=== PATIENT | female | born 1940 | race Caucasian/White ===

== ENCOUNTER 2022-12-27 12:49 | Emergency (ER) | payer MEDICARE, OTHER, SELFPAY ==
[2022-12-27] VITALS (14 sets, daily range): BP systolic 99–205; BP diastolic 71–100; PULSE 77–133; RESP 18; TEMP 36.7; O2SAT 95–100
--- NOTE | 2022-12-27 12:51 | DI.CT.S_ITS ---
PROCEDURE: CT ANGIO HEAD AND NECK INDICATIONS: left sided weakness TECHNIQUE: After the administration of intravenous contrast, 1 mm thick sections acquired from the aortic arch through the [place]. 3-dimensional wnjknos-mioqrxsot-dyzctsgbaz (MIP) and/or volume rendering reformats were acquired of the central intracranial vasculature and neck separately. For radiation dose reduction, the following was used: automated exposure control, adjustment of mA and/or kV according to patient size. COMPARISON: None. FINDINGS: Image quality: Diagnostic. BRAIN: CSF spaces: Ventricles are normal in size and shape. Basal cisterns are patent. No extra-axial fluid collections. Brain: No significant abnormality of the brain can be seen. Skull and face: Calvarium and facial bones appear intact, without suspicious lesions. Orbits appear normal. Sinuses: Sinuses and mastoids are clear. HEAD CT ANGIOGRAPHY: Anterior circulation: Intracranial internal carotid arteries demonstrate atherosclerotic irregularity and calcification, with approximately 50% narrowing on each side. The flow within the paired anterior cerebral arteries is normal and symmetric. The anterior communicating artery is seen. There is asymmetrically reduced flow within right M1 segment compared to the left M1 segment. There is highly attenuated flow seen within the right middle cerebral artery territory compared to the left. No aneurysms are seen. Posterior circulation: There is complete occlusion of the left V4 segment. The right V4 segment is within normal limits. There is a normal appearing basilar artery. Flow within the posterior cerebral arteries is normal and symmetric. No aneurysms are seen. NECK CT ANGIOGRAPHY: Carotid system: The great vessels demonstrate a conventional anatomy as they arise from the aortic arch. Atherosclerotic calcification is noted. The origins of the common carotid arteries appear patent. The common carotid arteries demonstrate normal caliber and courses. The bifurcation regions demonstrate atherosclerotic irregularity and calcification. There is approximately 80% narrowing seen on the right and 70-80% narrowing seen on the left. The more distal internal carotid arteries demonstrate normal course and caliber. Posterior circulation: The origin of the left vertebral artery is nearly completely occluded. The left vertebral artery demonstrates irregularity throughout its course. There is complete occlusion of the distal left vertebral artery within the distal V3 segment. The right vertebral artery origin demonstrates approximately 50% narrowing. The distal right vertebral artery is within normal limits. Soft tissues: Visualized neck soft tissues demonstrate no suspicious abnormalities. Several bubbles of gas can be seen within the deep soft tissues of the right face. Emphysematous changes can be seen at the lung apices. Bones: No suspicious bony lesions. Visualized cervical spine appears normally aligned. Advanced degenerative change can be seen involving the C1-C2 interface anteriorly, with irregularity with erosion of the dens and prominent calcified pannus posterior to the dens. Prominent degenerative changes can be seen within the lower cervical spine. IMPRESSION: Reduced flow within the right M1 segment compared to the left, with highly reduced segment throughout the right MCA territory compared to the left. 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 There is a small amount of flow seen throughout the extracranial left vertebral artery, yet with no flow seen within the left V4 segment. There is approximately 80% narrowing seen involving the right internal carotid artery origin, with 70-80% narrowing seen involving the left internal carotid artery origin. A few bubbles of gas can be seen within the deep soft tissues of the right face. Please correlate with known patient history. Additional findings: Prominent cervical spine degenerative change Note: Case discussed by telephone with Yaz Newell at 12:21 p.m. [place] time on December 27, 2022. Any quantitative measurements of stenosis were performed using NASCET criteria. Dictated by: Stepan Alonzo M.D. on 12/27/2022 at 12:13 Approved by: Stepan Alonzo M.D. on 12/27/2022 at 12:24
--- NOTE | 2022-12-27 12:51 | DI.CT.S_ITS ---
PROCEDURE: CT HEAD/BRAIN WO CON INDICATIONS: left sided weakness TECHNIQUE: Noncontrast 4.5 mm thick angled axial sections acquired from the foramen magnum to the vertex, with coronal and sagittal reformats. For radiation dose reduction, the following was used: automated exposure control, adjustment of mA and/or kV according to patient size. COMPARISON: None. FINDINGS: Image quality: Excellent. CSF spaces: Basal cisterns are patent. No extra-axial fluid collections. Ventricles are normal in size and shape. Brain: No midline shift. No intracranial masses or hemorrhage. Wilson-white matter interface is normal. Subcortical and periventricular white matter hypodensities are consistent with small vessel ischemic disease. Skull and face: Calvarium and visualized facial bones are intact, without suspicious lesions. Air is seen in the soft tissues of the right temporal lobe and [employer] muscles likely from inadvertent air injected into the IV line which is benign. Sinuses: Visualized sinuses and mastoids are clear. IMPRESSION: 1. No acute intracranial abnormality. 2. Cerebral volume loss and small vessel ischemic changes. Dictated by: Aristides Johnson M.D. on 12/27/2022 at 13:03 Approved by: Aristides Johnson M.D. on 12/27/2022 at 13:06
--- NOTE | 2022-12-27 13:04 | ED.NEUROSD ---
HPI - Neuro Symptoms/Deficit General Chief Complaint: Neuro Symptoms/Deficit Stated Complaint: Code Stroke Time Seen by Provider: 12/27/22 12:54 History of Present Illness HPI Narrative: 82-year-old female with history of atrial fibrillation on Eliquis presents by EMS as a code stroke. Patient was at the [facility] when at 12:30 p.m. patient's noticed a facial droop and speech slurring. EMS was called and patient transported for further evaluation. Vital signs were significant for hypertension and route, Accu-Chek 102. Patient noted to have significant left-sided facial droop with drooling, absent accounting system expert on the left-hand side, extinction on the left Related Data Allergies Allergy/AdvReac Type Severity Reaction Status Date / Time No Allergy Information Allergy Verified 12/27/22 14:01 Available Review of Systems Review of Systems Narrative: Unable to assess due to medical condition Exam Initial Vital Signs Initial Vital Signs: Vital Signs Temperature 98.1 F 12/27/22 12:55 Pulse Rate 81 12/27/22 12:55 Respiratory Rate 18 12/27/22 12:55 Blood Pressure 203/95 H 12/27/22 12:55 Pulse Oximetry 99 12/27/22 12:55 Oxygen Delivery Method Room Air 12/27/22 12:55 Const: Awake, alert, no acute distress Eyes: PERRL, EOMI, conjunctiva normal ENT: Atraumatic, facial droop Cardiac: Irregularly irregular RESP: unlabored, clear bilaterally, no wheezing GI: Atraumatic, soft, nontender Skin: Warm, Dry, intact, no rashes Neuro: AO x2, marked facial droop left-hand side, extinction left-hand side, decreased accounting system expert strength left hand, decreased strength left leg Psych: Appropriate for given condition Course Course Course Narrative: Facial droop and left-sided weakness, concerning for acute CVA. Stroke alert protocol continued on arrival. Stat noncontrast CT scan negative for bleed or acute findings. Goal blood pressure less than 220 systolic Orders Ordered: ED Orders 12/27/22 12:51 CT angio head and neck Stat CT head/brain wo con Stat 12/27/22 13:05 Complete Blood Count AUTO DIFF Stat Comprehensive Metabolic Panel Stat Ethanol (ETOH) Stat PTT Partial Thromboplastin George Stat Prothrombin Time INR Stat Troponin & CK Cardiac Panel Stat EKG-12 Lead Stat 12/27/22 13:38 COVID19 -Nasal RAPID Stat Discontinued Medications Labetalol HCl (Labetalol 20 Mg/4 Ml Syringe) 10 mg IV NOW ONE Stop: 12/27/22 13:31 Last Admin: 12/27/22 13:38 Dose: 10 mg Documented By: SHANT Reevaluation(s) Reevaluation #1: 1320 -case discussed with radiologist. CTA shows numerous concerning findings including significantly reduced flow in the MCA territory on the right. Is also noted that the left vertebral artery is nearly completely occluded at its origin with no flow in the V4 segment. Images pushed to [facility] for evaluation and specialtiy review. Discussed report with patient and her at bedside, they would like to pursue aggressive measures if that is available to them. Reevaluation #2: [facility] reviewed images, accepted patient for transfer as she is currently a thrombectomy candidate. Blood pressure briefly climbed to 223 systolic, given 10 mg IV labetalol with improvement in blood pressure. Reevaluation #3: Patient transferred to care of [facility] medical service in stable condition at 1425. Patient stable within capacity at time of transfer. Vital Signs Vital signs: Vital Signs - 8 hr 12/27/22 12:55 12/27/22 13:00 12/27/22 13:05 Temperature 98.1 F Pulse Rate 81 77 Respiratory Rate 18 Blood Pressure 203/95 H 196/90 H 188/88 H Pulse Oximetry 99 96 Oxygen Delivery Method Room Air Room Air 12/27/22 13:10 12/27/22 13:15 12/27/22 13:20 Temperature Pulse Rate 80 82 83 Respiratory Rate Blood Pressure 180/86 H 203/95 H 204/100 H Pulse Oximetry 96 96 95 Oxygen Delivery Method Room Air Room Air Room Air 12/27/22 13:30 12/27/22 13:38 12/27/22 14:05 Temperature Pulse Rate 124 H 84 129 H Respiratory Rate Blood Pressure 128/80 205/98 H 133/89 Pulse Oximetry 95 97 Oxygen Delivery Method Room Air Room Air 12/27/22 14:10 12/27/22 14:15 12/27/22 14:30 Temperature Pulse Rate 133 H 131 H 124 H Respiratory Rate Blood Pressure 116/93 H 102/72 123/73 Pulse Oximetry 99 100 98 Oxygen Delivery Method Room Air Room Air Room Air 12/27/22 14:35 12/27/22 14:40 Temperature Pulse Rate 133 H Respiratory Rate Blood Pressure 104/71 99/72 Pulse Oximetry 99 99 Oxygen Delivery Method Room Air Room Air MDM - Neuro Symptoms/Deficit Differential Diagnosis Differential diagnosis: Likely delirium, subarachnoid hemorrhage and cerebrovascular accident Lab Data 12/27/22 13:05 12/27/22 13:05 Labs: Lab Results 12/27/22 12/27/22 Range/Units 13:05 13:38 WBC 6.1 (4.5-11.0) X10^3/uL RBC 3.93 L (4.0-5.2) X10^6/uL Hgb 11.9 L (12.0-16.0) g/dL Hct 35.2 L (36-46) % MCV 89.4 (80-100) fL MCH 30.2 (26-34) PG MCHC 33.8 (30-36) % RDW 12.9 (11.6-14.8) % Plt Count 194 (150-400) X10^3/uL Neut % (Auto) 74.7 (50-75) % Lymph % (Auto) 12.2 L (25-40) % Mayes % (Auto) 8.7 (3-14) % Eos % (Auto) 3.7 (2-4) % Baso % (Auto) 0.7 (0-2) % Neut # (Auto) 4500 (3610-4540) /uL Lymph # (Auto) 700 L (3298-9129) /uL Mayes # (Auto) 500 (0-900) /uL Eos # (Auto) 200 (0-450) /uL Baso # (Auto) 0 (0-100) /uL PT 13.1 H (10.1-12.7) SECONDS INR 1.1 (0.9-1.3) APTT 35 (26-36) SECONDS Sodium 126 L (137-145) mmol/L Potassium 5.1 (3.4-5.1) mmol/L Chloride 93 L (98-107) mmol/L Carbon Dioxide 28 (22-32) mmol/L BUN 14 (7-17) mg/dL Creatinine 0.62 (0.52-1.04) mg/dL Estimated GFR > 60 (>60) mL/min BUN/Creatinine Ratio 22.6 H (6-22) Glucose 99 (80-110) mg/dL Calcium 9.3 (8.4-10.2) mg/dL Total Bilirubin 0.5 (0.2-1.3) mg/dL AST 27 (14-36) IU/L ALT 20 (<35) IU/L Alkaline Phosphatase 63 (38-126) U/L Total Creatine Kinase 32 (30-135) U/L Troponin I < 0.012 (0.01-0.034) ng/mL Total Protein 6.4 (6.3-8.2) g/dL Albumin 3.7 (3.5-5.0) g/dL Globulin 2.7 (1.7-4.1) g/dL Albumin/Globulin Ratio 1.4 (1.0-2.8) Ethyl Alcohol < 10 ( - 10) mg/dL SARS-CoV-2 (PCR) Negative (Negative) Point of Care Testing Glucose POC 102 Critical Care Time Critical Care Time Critical Care Time: Yes Total Critical Care Time: 48 Attestation: Severe CVA requiring transfer for thrombectomy. Discharge Plan Departure Patient Disposition: [facility] Clinical Impression: Cerebrovascular accident, Acute right MCA stroke Referrals: Vern Garcia MD [Primary Care Provider] -
[2022-12-27 13:13] LABS: Add Manual Diff / Slide Review NO; Basophils Absolute Auto 0 /uL (0-100); Basophils Percent Auto 0.7 % (0-2); Eosinophils Absolute Auto 200 /uL (0-450); Eosinophils Percent Auto 3.7 % (2-4); Hematocrit 35.2 % (36-46); Hemoglobin 11.9 g/dL (12.0-16.0); Lymphocytes Absolute Auto 700 /uL (1100-4500); Lymphocytes Percent Auto 12.2 % (25-40); Mean Corpuscular HGB Conc 33.8 % (30-36); Mean Corpuscular Hemoglobin 30.2 PG (26-34); Mean Corpuscular Volume 89.4 fL (80-100); Monocytes Absolute Auto 500 /uL (0-900); Monocytes Percent Auto 8.7 % (3-14); Neutrophils Absolute Auto 4500 /uL (1500-7000); Neutrophils Percent Auto 74.7 % (50-75); Platelet Count 194 X10^3/uL (150-400); Red Blood Cell Count 3.93 X10^6/uL (4.0-5.2); Red Cell Distribution Width 12.9 % (11.6-14.8); White Blood Cell Count 6.1 X10^3/uL (4.5-11.0)
[2022-12-27 13:22] LABS: INR 1.1 (0.9-1.3); Prothrombin Time 13.1 SECONDS (10.1-12.7)
[2022-12-27 13:24] LABS: PTT Partial Thromboplastin Tim 35 SECONDS (26-36)
[2022-12-27 13:28] LABS: Alanine Aminotransferase 20 IU/L (<35); Albumin 3.7 g/dL (3.5-5.0); Albumin Globulin Ratio 1.4 (1.0-2.8); Alkaline Phosphatase 63 U/L (38-126); Aspartate Aminotransferase 27 IU/L (14-36); BUN Creatinine Ratio 22.6 (6-22); Bilirubin Total 0.5 mg/dL (0.2-1.3); Blood Urea Nitrogen 14 mg/dL (7-17); Calcium 9.3 mg/dL (8.4-10.2); Carbon Dioxide 28 mmol/L (22-32); Chloride 93 mmol/L (98-107); Creatine Kinase 32 U/L (30-135); Estimated Glomerular Filt Rate > 60 mL/min (>60); Ethanol (ETOH) < 10 mg/dL; Globulin 2.7 g/dL (1.7-4.1); Glucose 99 mg/dL (80-110); HEMOLYSIS < 15 (0-50); Potassium 5.1 mmol/L (3.4-5.1); Sodium 126 mmol/L (137-145); Total Protein 6.4 g/dL (6.3-8.2)
[2022-12-27 13:38] LABS: Troponin I < 0.012 ng/mL (0.01-0.034)
[2022-12-27] MEDS: LABETALOL 20 MG/4 ML SYRINGE 10 MG IV (13:38)
[2022-12-27 14:11] LABS: COVID19 -Nasal RAPID Negative (Negative)
--- NOTE | 2022-12-27 14:50 | PC.NURSE ---
Patient arrived via ambulance at 1249, was immediately taken to CT. Glucose checked after, was 102. Labs drawn by outside laborer. Patient with left sided deficits including drooling from left side of face and extinction in left eye. Pupils were equal bilaterally at 3mm but left pupil was sluggish to react to light with barely perceivable change, verified by second RN. NIH score was 12 given weakness, ataxia, mild slurring of speech, and facial drooping. Patient became more confused as time spent into ED, multiple times situation and necessity for care was repeated without patient retaining the information. Was unable to assist patient with bedpan or larson catheter d/t patient not wanting either and declining. at bedside with patient for majority of the time for comfort of patient. Unable to verify allergies or home meds with patient or spouse but was able to know patient on Eliquis with hx of AFIB and COPD. Report given to [employer] RN and patient transferred without difficulties.
== END 2022-12-27 14:50 | disposition short-term general hospital (02) ==
PROVIDERS: Emergency Provider Emergency Medicine; PCP Internal Medicine
DX: I63.511 Cerebral infarction due to unspecified occlusion or stenosis of right middle cerebral artery (principal); I63.9 Cerebral infarction, unspecified; I10 Essential (primary) hypertension; Z79.01 Long term (current) use of anticoagulants; Z20.822 Contact with and (suspected) exposure to COVID-19
CPT/HCPCS: 36415; 70450; 70496; 70498; 80053; 80320; 82550; 82962; 84484; 85025; 85610; 85730; 87635; 93005; 93010; 96374; 99285; 99291; 99292; C9803; Q3014; Q9967